=== PATIENT | male | born 1970 ===

== ENCOUNTER 2020-12-08 10:42 | Emergency (ER) | payer MEDICAID, MEDICARE ==
[2020-12-08 11:01] VITALS: BP 159/105; PULSE 82; O2SAT 98
--- NOTE | 2020-12-08 11:09 | ERPHSYRPT ---
- History of Present Illness Time Seen by Provider: 12/08/20 11:04 Source: patient Patient Subjective Stated Complaint: Pt got a fishing hook in his right thumb and 3rd finger Triage Nursing Assessment: Pt was brought to the ER by his friend, hypertensive, rates pain as 2/10, fishing hooks in the right thumb and the right third finger, pulses normal, denies any other injury Physician History: A 50-year-old male who was fishing earlier this morning and managed to get a fishhook into his right thumb and right index finger. It was a 3 pronged fishhook but he did manage to catch a 10 pound catfish thank you. Injuries no other problems tetanus is current. His tetanus. Timing/Duration: today Quality: painful Severity: moderate Location: hands (There are) Possible Causes: other (Lung fishhook 2 prongs in peeled in the thumb and right index finger) Associated Symptoms: denies symptoms Allergies/Adverse Reactions: Penicillins Allergy (Verified 12/08/20 11:00) Home Medications: Oxycodone HCl/Acetaminophen [Oxycodone-Acetaminophn 7.5-325] 1 tab PO TID 12/08/20 [History] Pregabalin 50 mg [Lyrica 50MG] 50 mg PO TID 12/08/20 [History] Hx Tetanus, Diphtheria Vaccination/Date Given: No Travel Risk - International Travel Have you traveled outside of the country in past 3 weeks: No - Coronavirus Screening Are you exhibiting any of the following symptoms?: No Close contact with a COVID-19 positive Pt in past 14-21 Days: No - Vaccine Status Have you recieved a Covid-19 vaccination: No - Review of Systems Constitutional: No Fever, No Chills Eyes: No Symptoms Ears, Nose, & Throat: No Symptoms Respiratory: No Cough, No Dyspnea Cardiac: No Chest Pain, No Edema, No Syncope Abdominal/Gastrointestinal: No Abdominal Pain, No Nausea, No Vomiting, No Diarrhea Genitourinary Symptoms: No Dysuria Musculoskeletal: No Back Pain, No Neck Pain Skin: No Rash Neurological: No Dizziness, No Focal Weakness, No Sensory Changes Psychological: No Symptoms Endocrine: No Symptoms All Other Systems: Reviewed and Negative - Past Medical History Pertinent Past Medical History: No - Past Surgical History Past Surgical History: Yes Gastrointestinal: Hernia Repair Musculoskeletal: Orthopedic Surgery - Social History Smoking Status: Unknown if ever smoked Exposure to second hand smoke: No Drug Use: none Patient Lives Alone: Yes - Nursing Vital Signs Nursing Vital Signs: Initial Vital Signs Temperature 97.6 F 12/08/20 10:52 Pulse Rate 82 12/08/20 10:52 Blood Pressure 159/105 12/08/20 10:52 O2 Sat by Pulse Oximetry 98 12/08/20 10:52 Pain Scale Pain Intensity 2 - Physical Exam General Appearance: mild distress, alert Eye Exam: PERRL/EOMI, eyes nml inspection Ears, Nose, Throat Exam: normal ENT inspection, moist mucous membranes Neck Exam: normal inspection, non-tender, supple, full range of motion Respiratory Exam: normal breath sounds, lungs clear, No chest tenderness, No respiratory distress Cardiovascular Exam: regular rate/rhythm, normal heart sounds Gastrointestinal/Abdomen Exam: soft, mass, No tenderness Back Exam: normal inspection, normal range of motion, No CVA tenderness, No vertebral tenderness Extremity Exam: normal inspection, normal range of motion, other (Exam of the right hand other than an obvious fishhook impaled on the pad of the thumb and at the DIP joint of the index finger.) Neurologic Exam: alert, oriented x 3, cooperative, normal mood/affect, sensation nml, No motor deficits Skin Exam: normal color, warm, dry, other (Impaled on the pad of the right thumb and the DIP joint of the right index finger) SpO2 Interpretation: normal SpO2: 98 O2 Delivery: Room Air Procedures - Laceration/Wound Repair Right Finger Time of Procedure: 11:08 Wound Location: hand (Right hand shows a fishhook impaled in the volar surface of the DIP joint of the right index finger and the pad of the right thumb.) Wound Explored: clean (Cleaned) Irrigated: Yes Hibiclens Prep: Yes ( irrigated with Hibiclens) Anesthesia: 2% Lidocaine Volume Anesthetic (ccs): 5 Wound Debrided: minimal Layer Closure?: No Progress: 12/08/20 11:09 Both fishhooks were removed without difficulty simply using a needle ross carrier driver to retract them from the skin vascular tendon was intact no active bleeding - Course Nursing assessment & vital signs reviewed: Yes - Progress Progress: improved - Departure Departure Disposition: Home Clinical Impression: [place] injury to finger Condition: Stable Critical Care Time: No Referrals: NAFISA DOMINGUEZ [Primary Care Provider] - Instructions: Removal of Foreign Body in Skin Prescriptions: clindamycin HCL [Cleocin HCl] 300 mg PO TID 7 Days #21 capsule
[2020-12-08] MEDS ORDERED: Adacel Vial IM ONE ×2 (11:12→11:15)
== END 2020-12-08 11:25 | disposition home or self-care (01) ==
LOC: ED 10:42
DX: S60.351A Superficial foreign body of right thumb, initial encounter (principal); S61.242A Puncture wound with foreign body of right middle finger without damage to nail, initial encounter
CPT/HCPCS: 90471; 90715; 99283